=== PATIENT | female | born 1995 | race Caucasian/White ===

== ENCOUNTER → 2023-12-26 11:47 | Outpatient (CLI) | payer OTHER, SELFPAY ==
[2023-12-26 12:43] LABS: Add Manual Diff / Slide Review NO; Basophils Absolute Auto 0 /uL (0-100); Basophils Percent Auto 0.3 % (0-2); Eosinophils Absolute Auto 0 /uL (0-450); Eosinophils Percent Auto 0.6 % (2-4); Hematocrit 35.7 % (36-46); Hemoglobin 12.8 g/dL (12.0-16.0); Lymphocytes Absolute Auto 1700 /uL (1100-4500); Lymphocytes Percent Auto 22.7 % (25-40); Mean Corpuscular HGB Conc 35.9 % (30-36); Mean Corpuscular Hemoglobin 32.9 PG (26-34); Mean Corpuscular Volume 91.4 fL (80-100); Monocytes Absolute Auto 500 /uL (0-900); Monocytes Percent Auto 6.6 % (3-14); Neutrophils Absolute Auto 5400 /uL (1500-7000); Neutrophils Percent Auto 69.8 % (50-75); Platelet Count 256 X10^3/uL (150-400); Red Blood Cell Count 3.91 X10^6/uL (4.0-5.2); Red Cell Distribution Width 12.4 % (11.6-14.8); White Blood Cell Count 7.7 X10^3/uL (4.5-11.0)
[2023-12-26 21:22] LABS: Alanine Aminotransferase 21 IU/L (<35); Albumin 3.9 g/dL (3.5-5.0); Albumin Globulin Ratio 1.6 (1.0-2.8); Alkaline Phosphatase 50 U/L (38-126); Aspartate Aminotransferase 25 IU/L (14-36); Bilirubin Total 0.4 mg/dL (0.2-1.3); Blood Urea Nitrogen 12 mg/dL (7-17); Calcium 9.6 mg/dL (8.4-10.2); Carbon Dioxide 22 mmol/L (22-32); Chloride 104 mmol/L (98-107); Estimated Glomerular Filt Rate > 60 mL/min (>60); Globulin 2.5 g/dL (1.7-4.1); Glucose 87 mg/dL (70-100); HEMOLYSIS < 15 (0-50); Potassium 4.1 mmol/L (3.4-5.1); Sodium 133 mmol/L (137-145); Total Protein 6.4 g/dL (6.3-8.2)
[2023-12-27 05:15] LABS: RPR Screen Non Reactive (Non Reactive)
[2023-12-27 11:14] LABS: Varicella IgG Antibody 457 index (Immune >165)
[2023-12-27 21:32] LABS: Hepatitis B Surface Antigen NEGATIVE s/c (NEGATIVE); Rubella Antibody IgG 18.3 IU/mL (>15)
[2023-12-27 21:48] LABS: HIV 1 & 2 Ab/Ag 4th Gen Combo NEGATIVE (NEGATIVE); Hep C Virus Ab w/Reflex Quant NEGATIVE s/c (NEGATIVE)
== END ==
PROVIDERS: PCP Student in an Organized Health Care Education/Training Program; Referring Provider Family Medicine; Visit Provider Family Medicine
DX: Z34.80 Encounter for supervision of other normal pregnancy, unspecified trimester (principal); G43.909 Migraine, unspecified, not intractable, without status migrainosus
CPT/HCPCS: 36415; 80053; 80055; 86787; 86803; 86850; 86900; 86901; 87389

== ENCOUNTER → 2024-01-24 09:50 | Outpatient (CLI) | payer OTHER, SELFPAY ==
[2024-01-24 10:36] LABS: Appearance Urine UA CLEAR; Bilirubin Urine UA NEGATIVE (NEGATIVE); Color Urine UA YELLOW; Glucose Urine UA NEGATIVE (Negative); Ketones Urine UA NEGATIVE (NEGATIVE); Leukocyte Esterase Urine UA 2+ (NEGATIVE); Nitrite Urine UA NEGATIVE (Negative); Occult Blood Urine UA NEGATIVE (Negative); Protein Urine UA NEGATIVE (Negative); Urobilinogen Urine UA 0.2 E.U./dL (0.2)
[2024-01-24 10:53] LABS: pH Urine UA 7.5 (4.5-8.0)
[2024-01-24 10:59] LABS: Bacteria Urine Occasional (0-1); RBC Urine 0-1/HPF (0-5/HPF); Urine Volume 10mL (spun); WBC Urine 0-1/HPF (0-5/HPF)
[2024-01-24 11:00] LABS: Culture Indicated Urine Specimen Cultured; Squamous Epithelial Cell Urine None Seen (0-5/HPF)
[2024-01-24 11:03] LABS: Creatinine Urine Random 26.98 mg/dL; Protein (Total) Urine Random 12 mg/dL (0-12); Protein Creatinine Ratio Urine 0.44 GRAM/24H
[2024-01-24 11:55] LABS: Urine N gonorrhoeae NOT DETECTED
[2024-01-24 12:22] LABS: Urine Chlamydia NOT DETECTED
[2024-01-24 13:14] LABS: Natera Collection Specimen Collected
== END ==
PROVIDERS: PCP Student in an Organized Health Care Education/Training Program; Referring Provider Family Medicine; Visit Provider Family Medicine
DX: Z34.80 Encounter for supervision of other normal pregnancy, unspecified trimester (principal); G43.909 Migraine, unspecified, not intractable, without status migrainosus
CPT/HCPCS: 36415; 81003; 81015; 82570; 84156; 87086; 87491; 87591

== ENCOUNTER → 2024-02-15 12:42 | Outpatient (CLI) | payer OTHER, SELFPAY ==
--- NOTE | 2024-02-15 12:43 | DI.US.S_ITS ---
PROCEDURE: US OB >= 14 WEEKS FETUS INDICATIONS: GROWTH OUTSIDE/PRIOR DATING DATA: Last menstrual period (LMP): 10/04/23. LMP-based estimated date of delivery (ARIC): 07/10/24. First dating scan (date and location): 11/20/23. Estimated date of delivery (ARIC) from first dating scan: 07/10/24. The calculations are made using the above ARIC. TECHNIQUE: Real-time scanning was performed of the fetus, with image documentation and biometric measurements. Endovaginal scanning: Not needed. COMPARISON: Report from initial OB ultrasound. FINDINGS: General: A single living intrauterine gestation is present. Presentation: Vertex. Placenta: Placental position is anterior , without previa. Amniotic fluid index: 10.7 cm, normal range is 5-24 cm. Single deepest vertical pocket is 3.5 cm. heart rate: 144 beats per minute. Maternal cervical canal: 3.3 cm long. Normal lower limit is 2.5 cm. biometrics: Biparietal diameter: 4.2 cm, 18 weeks 5 days Head circumference: 16.1 cm, 18 weeks 6 day Abdominal circumference: 14.2 cm, 19 weeks 4 days Femur length: 3.1 cm, 19 weeks 5 days Clinically estimated gestational age: 19 weeks 1 day Composite gestational age from present scan: 19 weeks 2 days Estimated weight and percentile: 267 g, 68th percentile Anatomic survey: Neuro: Ventricles are non-dilated at less than 10 mm. Cisterna magna is normal at 3-11 mm. Cerebellum is normal in size and morphology. Nuchal skin fold: Normal at less than 6 mm between 14-21 weeks gestational age. Face: Nose and lips, facial profile are normal. Spine: No evidence for spina bifida. Heart: 4-chambered heart is present, with normal ventricular outflow tracts. Diaphragm: Diaphragm is intact. Stomach: Left-sided stomach is present, mildly prominent in size but not distended. Kidneys: No hydronephrosis. Normal is less than 5 mm in 2nd trimester, less than 7 mm in 3rd trimester. Cord: 3-vessel cord has orthotopic insertion. Bladder: Normal in size. Extremities: All 4 extremities identified. IMPRESSION: Appropriate interval growth, no anomaly seen. The delivery date is projected to center on 07/10/24 +/-5 days. We strive to produce accurate, complete, and clear reports of imaging services. To assist us in improving patient care, this report was composed using standard report templates and voice recognition software. Therefore, it may contain abnormal punctuation, insertions and/or omissions. Occasional wrong-word or sound-alike substitutions may occur. Though we review the report and make efforts to correct it, we do recommend that the report be read carefully in proper context to recognize any text inaccuracies. Dictated by: Valentin Nguyen M.D. on 02/15/2024 at 15:31 Approved by: Valentin Nguyen M.D. on 02/15/2024 at 15:39
== END ==
PROVIDERS: PCP Student in an Organized Health Care Education/Training Program; Referring Provider Family Medicine; Visit Provider Family Medicine
DX: Z34.82 Encounter for supervision of other normal pregnancy, second trimester (principal); Z3A.19 19 weeks gestation of pregnancy
CPT/HCPCS: 76811

== ENCOUNTER → 2024-06-12 11:10 | Outpatient (CLI) | payer OTHER, SELFPAY ==
[2024-06-13 13:44] LABS: Strep Grp B PCR NEG for Grp B Strep
== END ==
PROVIDERS: PCP Student in an Organized Health Care Education/Training Program; Visit Provider Family Medicine
DX: Z34.80 Encounter for supervision of other normal pregnancy, unspecified trimester (principal)
CPT/HCPCS: 87653

== ENCOUNTER 2024-06-19 11:30 | Inpatient (IN) | payer OTHER, SELFPAY ==
[2024-06-19 12:27] LABS: Add Manual Diff / Slide Review NO; Basophils Absolute Auto 100 /uL (0-100); Basophils Percent Auto 0.4 % (0-2); Eosinophils Absolute Auto 100 /uL (0-450); Eosinophils Percent Auto 0.5 % (2-4); Hematocrit 39.9 % (36-46); Lymphocytes Absolute Auto 2400 /uL (1100-4500); Mean Corpuscular HGB Conc 35.1 % (30-36); Mean Corpuscular Hemoglobin 33.9 PG (26-34); Mean Corpuscular Volume 96.5 fL (80-100); Monocytes Absolute Auto 900 /uL (0-900); Monocytes Percent Auto 5.9 % (3-14); Neutrophils Absolute Auto 12500 /uL (1500-7000); Neutrophils Percent Auto 78.2 % (50-75); Platelet Count 317 X10^3/uL (150-400); Red Blood Cell Count 4.14 X10^6/uL (4.0-5.2); Red Cell Distribution Width 12.3 % (11.6-14.8)
--- NOTE | 2024-06-19 12:27 | P.HPOB_ITS ---
OB HPI Date/Time Date of admission: 06/19/24 Date Patient Seen: 06/19/24 Time Patient Seen: 12:27 History of Present Condition Chief complaint: OBS OF LABOR ARIC Calculator 2 Estimated Delivery Date Method Current WG Current Estimate 07/10/24 LMP (Certain) 37w 0d Other Estimates 07/11/24 Ultrasound #1 36w 6d Estimated Gestational Age (weeks): 37w0d : 2 Para: 1 Narrative: 28-year-old dated by prior SAB consistent with 1st trimester ultrasound sent down from clinic after she was found to be grossly ruptured. This morning at 7:00 a.m. she got out of the shower and noticed a large gush of water. She has been trickling light pink fluid since that time. Since then, contractions have been getting stronger and closer together. On arrival in clinic this morning was jus every 3-8 minutes. She left clinic to walk for an hour then proceeded to labor and delivery when she felt rectal pressure. On arrival to L and D she is now 8 cm and requesting an epidural. has been uncomplicated thus far. Baby is low risk female by cell free DEJA, Eduarda Keyes 1 hr GTT elevated to 141. 3 hr completed and showing fasting 84, 1 hr of 104, 2 hr 87, 3 hr of 53 care: good care Dating criteria OB: LMP confirmed by 1st trimester US Ultrasounds: normal 1st trimester US and normal mid trimester US Obstetrical complications: none Medical complications OB: none Preadmission Labs Last OB Lab Results: 2 Blood Type A Positive 12/26/23 12:06 Antibody Screen Negative 12/26/23 12:06 Hct 39.9 % (36-46) 06/19/24 11:50 Hgb 14.0 g/dL (12.0-16.0) 06/19/24 11:50 Hep Bs Antigen Negative s/c (NEGATIVE) 12/26/23 12:06 Hepatitis C Antibody Negative s/c (NEGATIVE) 12/26/23 12:06 Rubella Antibody 18.3 IU/mL (>15) 12/26/23 12:06 VZV IgG Antibody 457 index (Immune >165) 12/26/23 12:06 Group B Strep (PCR) Neg for grp b strep 06/12/24 11:10 Glucose Tolerance Testin hr (141) and 3 hr (1 hr GTT elevated to 141. 3 hr completed and showing fasting 84, 1 hr of 104, 2 hr 87, 3 hr of 53) -: Chlamydia screen: negative, Gonorrhea screen: negative and Urine: negative -: PAP smear: Normal (05/08/22) Genetic Screens: Cell-free DNA: Normal (low risk female, Eduarda Keyes ) External Labs -: Urine: negative Prior (ies) Past Pregnancies Del. Date GA/Weeks Labor Lgth Wt Sex Route Outcome Anesthesia Place Delv Breastfeed Preg Comp Name 10/04/23 4-5 spontaneous Delivery Date: 10/04/23 Last Updated by: Umm Fernandez RN passed spontaneously, no complications Spontaneous abortions: 1 Evaluation Evaluation Baseline heart rate: 120 Variability: Moderate (11-25) monitor accelerations: Absent Monitor Decelerations: Absent Contraction Frequency (minutes): 2 Uterine Contraction Intensity: Strong/Firm Category of Tracing: Reactive Status: Category l Dilation (cm): 8 Effacement (%): 100 Dilation: >/=5 cm Effacement: >/=80% station: 0 Position of cervix: anterior Consistency: soft Samano score: 12 Comments: grossly ruptured [facility] Medical History (Updated 02/03/24 @ 17:42 by Carol Adkins) Eczema (~2015) Acne (~2016) Asthma (~2002) Allergies (~2001) Headache (~2010) Shoulder pain (~2011) Fractures Chicken pox (~1999) Oral herpes Gonorrhea (~2016) Chlamydia (~2016) Heart palpitations (~2015) Anxiety and depression (~2013) Scoliosis (~2011) IBS (irritable bowel syndrome) (~1997) Migraines (~2011) Breast lump Foot fracture Nasal bone fracture Surgical History (Updated 02/03/24 @ 17:42 by Craol Adkins) Anesthesia History of foot surgery (~2009) History of rhinoplasty (~2016) [place] teeth extracted Family History (Updated 02/03/24 @ 17:45 by Carol Adkisn) Mother History of alcoholism Obesity Precancerous skin lesion Thyroid disorder Mental health problem Father Family estrangement Grandmother Skin cancer History of alcoholism Hypertension Dementia Stroke Grandfather Skin cancer History of alcoholism Congestive heart failure Mental health problem Aunt Diabetes mellitus COPD (chronic obstructive pulmonary disease) Stroke Morbid obesity alcohol syndrome Family/Other Ovarian cancer Social History marital status: number of children: 0 household members: spouse lives independently: Yes caregiver/support person: No housing: house pets and animals: Yes (cats) education level: college (some college) occupational status: employed (office job, real estate) current occupational exposures/hazards: No special caleb needs: No travel history: over 6 months ago seatbelt use: always water heater temp set < 120 deg: Yes working smoke detector in home: Yes fire extinguisher in home: Yes carbon monox detector in home: Yes firearms in home: Yes firearms unloaded and locked: Yes do you feel safe at home: Yes Smoking Status: Former smoker (quit vaping mid 2022) second hand exposure: Yes ( smokes MJ outside) alcohol intake: former (very occasionally when not ) substance use type: does not use during the past year weight has: remained stable well-balanced diet: daily or most days daily servings fruits/ve or more times/day caffeine: Yes (small AM cup coffee) Type(s) of exercise: walking and regular exercise Meds Home Medications and Allergies Home Medications Medication Instructions Recorded Confirmed Type Lactobacillus rhamnosus GG 10 1 cap PO DAILY 12/10/23 06/12/24 History billion cell capsule (Culturelle) epinephrine 0.3 mg/0.3 mL 0.3 mg IM ONCE PRN 12/10/23 06/12/24 History injection, auto-injector (EpiPen) vitamin-ferrous sulfate tab PO 12/10/23 06/12/24 History 27 mg iron-folic acid 0.8 mg tablet ondansetron 4 mg disintegrating 4 mg PO Q8H #30 tabs 04/17/24 06/12/24 Rx tablet RSV vac, preF A and preF B(PF) 120 0.5 ml IM ONCE #1 ea 06/05/24 06/12/24 Rx mcg/0.5 mL IM solution (Abrysvo (PF)) Allergies Allergy/AdvReac Type Severity Reaction Status Date / Time peanut Allergy Severe Anaphylaxis Verified 06/12/24 10:20 Review of Systems Review of Systems Narrative: + FM + LOF + contractions OB Exam Vital signs Blood Pressure: 118/74 Pulse Rate: 90 Narrative Exam Narrative: Gen: pt leaned over getting epidural placed, jus regularly Pulm: breathing through contractions MSK: scant edema ABd: gravid Exam from 1 hour ago in clinic Gen: breathing through contractions but able to talk and respond during ABd: gravid : grossly ruptured, pink fluid at introutus. SVE /-3 MSK: scan edema Objective Labs 06/19/24 11:50 Assessment and Plan Assessment and Plan Assessment and Plan narrative: 28yo presenting in active labor #STEVNE #SROM: ROM at 7am on 06/19 - Admit to LD - Anesthesia consult for epidural - continuous monitoring - sutures palpated on exam this AM, vertex position - low risk female, Eduarda Keyes - CBC, TS - GBS negative Time-Based Coding :: [TOTAL MINUTES] spent with patient and on the chart (including review of chart, obtaining history, exam, reviewing outside data, placing orders, documenting exam and treatment plan, and counseling patient) on [DATE].
[2024-06-19 12:46] VITALS: BP 118/74; PULSE 90
[2024-06-19 13:30] VITALS: BP 123/66
--- NOTE | 2024-06-19 14:37 | PM.AN.REGBLK ---
Regional Block Pre-procedure Procedure: Continuous Lumbar Epidural for L&D Attending OB provider: Opal Briscoe PMH/ROS narrative: at 37 weeks, SROM, no medical or obstetric complications. ASA Class: II Labs: Hct 39.9 % (36-46) 06/19/24 11:50 Plt Count 317 X10^3/uL (150-400) 06/19/24 11:50 Medications: Current Medications Generic Name Dose Route Start Last Admin Trade Name Freq PRN Reason Stop Dose Admin Calcium Carbonate 1,000 mg 06/19/24 12:29 Calcium Carbonate 500 Mg Tab PO Q2HR PRN Dyspepsia Carboprost Tromethamine 250 mcg 06/19/24 12:29 Carboprost 250 Mcg/Ml Ampul IM Q90M PRN Bleeding Diphenhydramine HCl 25 mg 06/19/24 12:03 Diphenhydramine 50 Mg/Ml Vial IV Q10M PRN Pruritis FENT 2MCG/ML BUPIV 0.125% EPI 200 mcg in 100 mls @ 6 mls/hr 06/19/24 12:15 Fentanyl/Bupiv/Ns 2mcg/Ml - 0.125% EPIDURAL CONT ZAK Lactated Ringer's 1,000 mls @ 100 mls/hr 06/19/24 12:30 Lactated Ringers IV 06/19/24 22:29 CONT ZAK Oxytocin/Lactated Ringer's 30 unit in 500 mls @ 200 mls/hr 06/19/24 12:29 Oxytocin Premix IV CONT PRN Bleeding Protocol Tranexamic Acid 1,000 mg/ 100 mls @ 600 mls/hr 06/19/24 12:29 Sodium Chloride IV NOW PRN Bleeding Oxytocin/Lactated Ringer's 30 unit in 500 mls @ 2 mls/hr 06/19/24 12:30 Oxytocin Premix IV TITRATE ZAK Protocol 2 MILLIUNIT/MIN Lidocaine HCl 20 ml 06/19/24 12:29 Lidocaine 1% 20 Ml INJ INTRA-OP PRN Post Delivery Methylergonovine Maleate 0.2 mg 06/19/24 12:29 Methylergonovine 0.2 Mg Tablet PO Q6HR PRN Heavy Bleeding Methylergonovine Maleate 0.2 mg 06/19/24 12:29 Methylergonovine 0.2 Mg/Ml Vial IM NOW PRN Bleeding Mineral Oil 30 ml 06/19/24 12: Mineral Oil 30 Ml Udc TOP PRN PRN Version Misoprostol 800 mcg 06/19/24 12:29 Misoprostol 200 Mcg Tablet SD NOW PRN Bleeding Misoprostol 400 mcg 06/19/24 12:29 Misoprostol 200 Mcg Tablet SL NOW PRN Bleeding Nalbuphine HCl 2.5 mg 06/19/24 12: Nalbuphine 20 Mg/Ml Ampul IV Q10M PRN Pruritis Naloxone HCl 0.2 mg 06/19/24 12:29 Naloxone 0.4 Mg/Ml Vial IV Q2MIN PRN Opiate Reversal Ondansetron HCl 4 mg 06/19/24 12: Ondansetron 4 Mg/2 Ml Inj IV Q4HR PRN Nausea And Vomiting Oxytocin 10 unit 06/19/24 12: Oxytocin 10 Unit/Ml Vial IM NOW PRN Bleeding Allergies: Allergies Allergy/AdvReac Type Severity Reaction Status Date / Time peanut Allergy Severe Anaphylaxis Verified 06/12/24 10:20 Procedure Insertion date: 06/19/24 Insertion time: 12:23 Prep/Local: betadine x3 and 1% lidocaine Interspace: L3-4 Patient position: sitting Needle: 18 gauge Hustead (CSE: 27g Pencan through Hustead, clear CSF, 1mL 0.25% bupiv MPF) Loss of resistance with: saline DEEP at (cm): 5 Catheter placed at SKIN (cm): 11 Catheter in SPACE (cm): 6 Insertion: No CSF, No Blood, No Paresthesia with insertion, No Paresthesia with injection and No Test dose reaction Initial Medications TEST DOSE time: 12:25 TEST DOSE: 1.5% lidocaine with epinephrine 1:200k (mL): 3 BOLUS DOSE time: 12:35 BOLUS DOSE (mL): 4 BOLUS DOSE med: other (infusate) Infusion INFUSION: 0.125% bupivacaine and with fentanyl 2 mcg/mL Initial rate (mL/hr): 8 Subsequent interventions: Post-procedure Anesthesia date START: 06/19/24 Anesthesia time START: 12:15 Anesthesia date END: 06/19/24 Anesthesia time END: 16:00 Post-procedure Anesthesia Assessment: Yes CV function: HR/BP stable, Yes Resp function: RR/sat/airway adequate, Yes Post-op hydration adequate, Yes Pain control adequate, Yes Nausea & vomiting absent, Yes Temperature > 36 C, Yes Mental status appropriate and No Anesthesia complications
[2024-06-19] MEDS: OXYTOCIN PREMIX 30 UNIT/500 ML PLAST..BAG 200 UNIT IV (16:06)
--- NOTE | 2024-06-19 16:32 | PM.OBPRVD ---
Labor & Delivery Delivery date: 06/19/24 Delivery Time: 15:49 Intrapartal Events: None Cervical ripening method: none Induction method: none Delivery monitor: external FHT Route of delivery: L&D Laceration Description: Periurethral - 1st Degree (R side) and Perineal - 1st Degree Delivery repair: vicryl Estimated blood loss (mL): 200 Anesthesia Type: Epidural Complications: none Narrative: PROCEDURE: 28 yo at 37w0d presented to clinic with SROM (grossly ruptured on exam) and was sent to for monitoring. She was admitted to Labor and Delivery and managed expectantly. SROM occured at 0700 prior to arrival with clear fluid. GBs was negative so no ppx was initiated. Pain was controlled with epidural. The patient progressed through the 2nd stage and delivered a vigorous female out of DAMIEN with APGARs 9/9 at 15:49 via out of hands and knees. The cord was cut and clamped after it stopped pulsating, just after 15 min. The placenta delivered with gentle cord traction, and appeared complete. The perineum and vagina were inspected with a right periurethral laceration and 1st degree perineal laceration. These were repaired in the usual fashion. A straight cath was placed in the urethra during the repair of the periurethral laceration to ensure the urethra was not involved in the repair. 50cc of urine was drianged. PT tolerated this procedure well Needle and sponge counts were correct.? The vagina was inspected and no items were left in situ. PREPROCEDURE DIAGNOSIS: Intrauterine at 37w0d GBS negative RH positive POSTPROCEDURE DIAGNOSIS: Intrauterine at 37w0d, delivered Same as preprocedure Plan for aftercare: Routine care
[2024-06-19] MEDS: LANOLIN OINT 7 GM 1 APPLIC TOP (19:15)
[2024-06-19] MEDS: DERMOPLAST SPRAY 20% 60 ML 1 SPRAY TOP (19:16)
[2024-06-19] MEDS: WITCH HAZEL/GLYCERIN PADS 1 EACH TOP (19:16)
[2024-06-19] MEDS: ACETAMINOPHEN 325 MG TABLET 650 MG PO (23:59)
[2024-06-20] MEDS: ACETAMINOPHEN 325 MG TABLET 650 MG PO (06:31)
--- NOTE | 2024-06-20 08:09 | P.DS_ITS ---
Discharge Providers Provider Date of admission: 06/19/24 11:30 Discharge Date: 06/20/24 Primary care physician: Wilder Mcpherson MD Consults: 06/20/24 16:33 Consult to Science Intern Routine Comment: Discharge provider: Opal Briscoe MD Summary Hospital Course Date Patient Seen: 06/20/24 Time Patient Seen: 07:35 Hospital Course: 28 yo at 37w0d who presented to clinic with SROM (grossly ruptured on exam) and was sent to for monitoring. She was admitted to Labor and Delivery and managed expectantly. SROM occured at 0700 prior to arrival with clear fluid. GBs was negative so no ppx was initiated. Pain was controlled with epidural. The patient progressed through the 2nd stage and delivered a vigorous female infant out of DAMIEN with APGARs 9/9 at 15:49 via out of hands and knees. The cord was cut and clamped after it stopped pulsating, just after 15 min. The placenta delivered with gentle cord traction, and appeared complete. The perineum and vagina were inspected with a right periurethral laceration and 1st degree perineal laceration. These were repaired in the usual fashion. A straight cath was placed in the urethra during the repair of the periurethral laceration to ensure the urethra was not involved in the repair. 50cc of urine was drained. PT tolerated this procedure well she is doing well. Bleeding is minimal, pain is well controlled with tylenol and she is ambulating without difficulty. She is and is making clostrum. She has met with for assistance. She is planning on using natural family planning for control. She is aware of the risks of this method and aware of recommendation to avoid in the next 12 months Peripartum Data Infant Delivery Method: Natural Vaginal Laceration Description: Periurethral - 1st Degree and Perineal - 1st Degree complications: none Status at Discharge Cognitive/behavioral status at discharge: oriented Functional status at discharge: independent ambulation Time Spent with Patient Time attestation: Total time spent providing and/or coordinating discharge services: Time spent: Less than 30 minutes Objective Labs 06/19/24 11:50 Labs: Laboratory Results - last 24 hr 06/19/24 11:50 WBC 16.0 H RBC 4.14 Hgb 14.0 Hct 39.9 MCV 96.5 MCH 33.9 MCHC 35.1 RDW 12.3 Plt Count 317 Neut % (Auto) 78.2 H Lymph % (Auto) 15.0 L [place] % (Auto) 5.9 Eos % (Auto) 0.5 L Baso % (Auto) 0.4 Neut # (Auto) 75420 H Lymph # (Auto) 2400 [place] # (Auto) 900 Eos # (Auto) 100 Baso # (Auto) 100 Blood Type A Positive Antibody Screen Negative Exam Narrative Exam Narrative: GEN: Healthy appearing, well-developed, NAD. PSYCH: Good Judgment. AOx3. Normal memory, mood, and affect HEENT: -Head: NC/AT -Eyes: No discharge or redness CV: warm and well perfused LUNGS: breathing comfortably on RA SKIN: Warm, well perfused. No skin rashes or abnormal lesions NEURO: No focal deficits Discharge Plan Discharge Plan Patient Disposition: Home Discharge orders & Medications Prescriptions: Continued ondansetron 4 mg tablet,disintegrating 4 mg PO Q8H Qty: 30 0RF Abrysvo (PF) 120 mcg/0.5 mL recon soln 0.5 ml IM ONCE Qty: 1 0RF Rx Instructions: as a single dose. vit-ferrous sulfat-FA 27 mg iron- 0.8 mg tablet PO Culturelle 10 billion cell capsule 1 cap PO DAILY epinephrine [EpiPen] 0.3 mg/0.3 mL auto-injector 0.3 mg IM ONCE PRN (Reason: Allergic Reaction) Rx Instructions: as a single dose; may repeat once Follow up/Referrals: Wilder Mcpherson MD [Primary Care Provider] - Visit Report/Discharge Packet Stand Alone Forms: Discharge: Care, Patient Portal/API, Stroke Signs & Symptoms Discharge Data Primary Care Provider: Wilder Mcpherson Discharges patient from system. Discharge Date/Time: 06/20/24 14:00
[2024-06-20 14:03] VITALS: BP 107/67; PULSE 64; RESP 18; TEMP 37
== END 2024-06-20 14:00 | disposition home or self-care (01) | DRG 807 ==
PROVIDERS: Admitting Provider Family Medicine; PCP Student in an Organized Health Care Education/Training Program; Referring Provider Family Medicine; Visit Provider Family Medicine
DX: O70.0 First degree perineal laceration during delivery (principal); Z37.0 Single live birth; O71.82 Other specified trauma to perineum and vulva; Z3A.37 37 weeks gestation of pregnancy
CPT/HCPCS: 36415; 59050; 85025; 86850; 86900; 86901; G0379; J2590